=== PATIENT | male | born 1990 | race African-American/Black ===

== ENCOUNTER 2018-06-07 11:43 | Emergency (ER) | payer OTHER ==
[2018-06-07 11:54] VITALS: BP 147/97
[2018-06-07] MEDS ORDERED: ALBUTEROL/IPRATROPIUM 2.5MG/0.5MG, 3 ML ONE (12:40)
== END 2018-06-07 13:33 | disposition home or self-care (01) ==
LOC: ED 13:18
DX: J45.41 Moderate persistent asthma with (acute) exacerbation (principal)
CPT/HCPCS: 71046; 94640; 99283